=== PATIENT | male | born 2000 | race Caucasian/White ===

== ENCOUNTER 2024-09-04 08:20 | Emergency (ER) | payer SELFPAY ==
[~2024-09-04] VITALS: Ht 172.7 cm; Wt 108.9 kg
[2024-09-04 10:03] LABS: CORONAVIRUS COVID-19 AG Negative (NEGATIVE); INFLUENZA A AG Negative (NEGATIVE); INFLUENZA B AG Negative (NEGATIVE)
[2024-09-04] MEDS ORDERED: Tessalon200 MG PO (11:10)
[2024-09-04] MEDS ORDERED: AMOCLA875 PO (11:10)
== END 2024-09-04 11:28 | disposition home or self-care (01) ==
LOC: ER 08:20
PROVIDERS: Physician Assistant
DX: J06.9 Acute upper respiratory infection, unspecified (principal)
CPT/HCPCS: 71046; 87428-QW; 99283

== ENCOUNTER 2024-12-16 14:57 | Emergency (ER) | payer OTHER ==
[~2024-12-16] VITALS: Ht 172.7 cm; Wt 108.9 kg
[~2024-12-16 14:57] MED LIST: AMOCLA875 PO; Tessalon200 MG PO
[2024-12-16 16:08] LABS: BASOPHILS ABSOLUTE AUTO 0.04 K/mm3 (0.00-0.23); BASOPHILS PERCENT AUTO 0 % (0-2); EOSINOPHILS ABSOLUTE AUTO 0.16 K/mm3 (0.00-0.68); EOSINOPHILS PERCENT AUTO 2 % (0-6); Hemoglobin 14.9 g/dL (13.5-17.5); IMMATURE GRAN ABSOLUTE AUTO 0.01 K/mm3 (0.00-0.10); IMMATURE GRAN PERCENT AUTO 0 % (0-1); LYMPHOCYTES ABSOLUTE AUTO 2.31 K/mm3 (0.84-5.20); LYMPHOCYTES PERCENT AUTO 26 % (21-46); MONOCYTES ABSOLUTE AUTO 0.75 K/mm3 (0.16-1.47); MONOCYTES PERCENT AUTO 8 % (4-13); Mean Corpuscular HGB 28.7 pg (26.0-34.0); Mean Corpuscular HGB Conc 33.1 g/dL (31.5-36.5); Mean Corpuscular Volume 87 fL (80-100); Mean Platelet Volume 11.6 fL (9.1-12.4); NEUTROPHILS ABSOLUTE AUTO 5.72 K/mm3 (1.96-9.15); NEUTROPHILS PERCENT AUTO 64 % (41-73); Platelet Count 214 K/mm3 (150-400); RDW Coefficient Variation 13.2 % (11.7-14.2); RDW Standard Deviation 42.2 fL (35.1-46.3); Red Blood Cell Count 5.19 M/mm3 (4.30-5.90); White Blood Cell Count 8.99 K/mm3 (4.00-11.30)
[2024-12-16 16:40] LABS: Bilirubin, Total 0.4 mg/dL (0.1-1.0); Bun/Creatinine Ratio 18.1 (12.0-20.0); Calcium, Blood 8.8 mg/dL (8.5-10.1); Creatinine, Blood 0.72 mg/dL (0.60-1.20); Globulin, Blood 3.9 g/dL (2.2-4.0); Total Protein, Blood 7.9 g/dL (6.4-8.2)
[2024-12-16] MEDS ORDERED: DIAZ2 PO (17:29)
[2024-12-16] MEDS ORDERED: Ketorolac Tromethamine 30mg Vial IV ONE (17:30)
== END 2024-12-16 17:52 | disposition home or self-care (01) ==
LOC: ER 14:57
PROVIDERS: Student in an Organized Health Care Education/Training Program
DX: S13.9XXA Sprain of joints and ligaments of unspecified parts of neck, initial encounter (principal); S20.211A Contusion of right front wall of thorax, initial encounter; S40.021A Contusion of right upper arm, initial encounter; Z79.899 Other long term (current) drug therapy; Z59.89 Other problems related to housing and economic circumstances; V86.99XA Unspecified occupant of other special all-terrain or other off-road motor vehicle injured in nontraffic accident, initial encounter
CPT/HCPCS: 71250; 73030; 73060; 74150; 80053; 85025; 96374; 99284-25; J1885